=== PATIENT | female | born 1975 | race Caucasian/White ===

== ENCOUNTER 2018-05-03 11:10 | Emergency (ER) | payer OTHER ==
[~2018-05-03] VITALS: Ht 157.5 cm; Wt 70.8 kg
[2018-05-03 13:47] VITALS: BP 162/99
== END 2018-05-03 13:47 | disposition home or self-care (01) ==
LOC: ED 11:10
DX: J06.9 Acute upper respiratory infection, unspecified (principal); E05.90 Thyrotoxicosis, unspecified without thyrotoxic crisis or storm; Z88.8 Allergy status to other drugs, medicaments and biological substances

== ENCOUNTER 2018-06-23 18:50 | Emergency (ER) | payer OTHER ==
[~2018-06-23] VITALS: Ht 157.5 cm; Wt 72.1 kg
[2018-06-23 19:14] VITALS: Ht 157.5 cm; Wt 72.1 kg
[2018-06-23 21:17] VITALS: BP 144/79
== END 2018-06-23 21:17 | disposition home or self-care (01) ==
LOC: ED 18:50
DX: R51 Headache (principal); R11.2 Nausea with vomiting, unspecified; R03.0 Elevated blood-pressure reading, without diagnosis of hypertension; E03.9 Hypothyroidism, unspecified; Z88.6 Allergy status to analgesic agent; Z98.890 Other specified postprocedural states
CPT/HCPCS: J2765

== ENCOUNTER → 2019-02-12 | Outpatient (CLI) | payer OTHER ==
[2019-02-12 10:02] LABS: microscopic required? NO
[2019-02-12 10:09] LABS: BASOPHIL % 1.2 % (0-2); PLATELET COUNT 396 x10^3mcL (130-400); RED CELL DISTRIBUTION WIDTH 13.2 % (11.5-14.5)
[2019-02-12 10:18] LABS: urine erythrocyte NEGATIVE (NEGATIVE)
[2019-02-12 10:31] LABS: T3 TOTAL 1.36 ng/mL
[2019-02-12 10:32] LABS: ALBUMIN 3.9 g/dL (3.4-5.0); ALKALINE PHOSPHATASE 107 U/L (46-116); ALT/SGPT 31 U/L (14-59); AST/SGOT 18 U/L (15-37); BILIRUBIN TOTAL 0.5 mg/dL (0.20-1.00); CALCIUM 8.9 mg/dL (8.5-10.1); CARBON DIOXIDE 28.1 mmol/L (21-32); CHLORIDE SERUM 103 mmol/L (98-107); CHOLESTEROL 190 mg/dL (<200); CHOLESTEROL/HDL RATIO 3.3; CREATININE SERUM 0.6 mg/dL (0.6-1.0); FREE T4 1.09 ng/dL (0.76-1.46); FREE THYROXINE INDEX 3.1 ug/dL (1.4-4.5); GFR1 > 60 mL/min; GLUCOSE SERUM 97 mg/dL (74-106); HDL CHOLESTEROL 58 mg/dL (40-60); POTASSIUM SERUM 3.7 mmol/L (3.5-5.1); SODIUM SERUM 141 mmol/L (136-145); T4(THYROXINE) 9.3 ug/dL (4.7-13.3); TOTAL PROTEIN, SERUM 7.7 g/dL (6.4-8.2); TRIGLYCERIDES 47 mg/dL (<150)
== END | disposition home or self-care (01) ==
LOC: LB 09:36
DX: E05.90 Thyrotoxicosis, unspecified without thyrotoxic crisis or storm (principal); Z76.89 Persons encountering health services in other specified circumstances
CPT/HCPCS: 84439

== ENCOUNTER → 2019-06-21 | Outpatient (CLI) | payer OTHER ==
[2019-06-21 11:42] LABS: FREE T4 0.91 ng/dL (0.76-1.46)
[2019-06-21 12:45] LABS: T3 TOTAL 1.02 ng/mL
== END | disposition home or self-care (01) ==
LOC: LB 10:48
DX: E55.9 Vitamin D deficiency, unspecified (principal)
CPT/HCPCS: 84439

== ENCOUNTER 2019-09-15 20:33 | Emergency (ER) | payer OTHER ==
[~2019-09-15] VITALS: Ht 157.5 cm; Wt 74.6 kg
[2019-09-15 20:40] VITALS: Ht 157.5 cm; Wt 74.6 kg
[2019-09-15 22:30] VITALS: BP 158/83
== END 2019-09-15 22:30 | disposition home or self-care (01) ==
LOC: ED 20:33
DX: M54.16 Radiculopathy, lumbar region (principal); Z88.6 Allergy status to analgesic agent
CPT/HCPCS: J1100

== ENCOUNTER → 2019-10-20 | Outpatient (CLI) | payer OTHER ==
[2019-10-20 16:52] LABS: T3 TOTAL 1.34 ng/mL
[2019-10-20 16:53] LABS: FREE T4 0.83 ng/dL (0.76-1.46)
== END | disposition home or self-care (01) ==
LOC: LB 15:45
DX: E55.9 Vitamin D deficiency, unspecified (principal)
CPT/HCPCS: 84439

== ENCOUNTER → 2020-09-14 | Outpatient (CLI) | payer OTHER ==
[2020-09-14 12:24] LABS: microscopic required? NO
[2020-09-14 12:29] LABS: RED CELL DISTRIBUTION WIDTH 13.1 % (12.3-17.7)
[2020-09-14 12:34] LABS: PLATELET COUNT 453 x10^3mcL (179-408)
[2020-09-14 12:47] LABS: UA SPECIFIC GRAVITY 1.015 (1.005-1.035); urine erythrocyte NEGATIVE (NEGATIVE)
[2020-09-14 13:14] LABS: ALBUMIN 3.8 g/dL (3.4-5.0); ALKALINE PHOSPHATASE 101 U/L (46-116); ALT/SGPT 28 U/L (14-59); AST/SGOT 24 U/L (15-37); BILIRUBIN TOTAL 0.4 mg/dL (0.20-1.00); CALCIUM 8.3 mg/dL (8.5-10.1); CARBON DIOXIDE 31.1 mmol/L (21-32); CHLORIDE SERUM 101 mmol/L (98-107); CREATININE SERUM 0.7 mg/dL (0.6-1.0); GFR1 > 60 mL/min; GLUCOSE SERUM 103 mg/dL (74-106); HDL CHOLESTEROL 53 mg/dL (40-60); POTASSIUM SERUM 3.3 mmol/L (3.5-5.1); SODIUM SERUM 134 mmol/L (136-145); TOTAL PROTEIN, SERUM 7.6 g/dL (6.4-8.2); TRIGLYCERIDES 75 mg/dL (<150)
[2020-09-14 13:16] LABS: CHOLESTEROL 208 mg/dL (<200); CHOLESTEROL/HDL RATIO 3.9
== END | disposition home or self-care (01) ==
LOC: LB 11:56
DX: Z00.00 Encounter for general adult medical examination without abnormal findings (principal); E55.9 Vitamin D deficiency, unspecified; Z86.39 Personal history of other endocrine, nutritional and metabolic disease
CPT/HCPCS: 84439